=== PATIENT | female | born 1995 | race Caucasian/White ===

== ENCOUNTER → 2016-10-17 | Outpatient (CLI) | payer OTHER ==
--- NOTE | 2016-10-17 12:43 | CPEEG ---
[f rep st] ELECTROENCEPHALOGRAM DATE OF STUDY: 10/17/2016 DATE OF INTERPRETATION: 10/17/2016 INTERPRETATION: Normal EEG during wakefulness and sleep. There were no potentially epileptogenic abnormalities present during the recording. REPORT: This EEG contains 10 hertz alpha activity posterior head regions. There was no abnormal activation at rest, during photic stimulation or hyperventilation. The patient became drowsy and fell asleep during the study. There was no abnormal activation during drowsiness, sleep, or during times of arousal. /[id number]/MODL MTDD
== END ==
LOC: FCPNEURO 08:55
PROVIDERS: ATTEND Psychiatry & Neurology Neurology
DX: H53.123 Transient visual loss, bilateral (principal); R47.9 Unspecified speech disturbances; R51 Headache

== ENCOUNTER → 2016-10-24 | Outpatient (CLI) | payer OTHER ==
--- NOTE | 2016-10-24 17:00 | MR ---
MRI of the Brain (Without Contrast) at 1519 hours Clinical Indications: R 47.9, R 51, headaches Technique: T1-weighted images were acquired axially and sagittally from the foramen magnum to the ve rtex. Axial fast inversion recovery, fast T2-weighted, and diffusion-weighted axial images were obta ined without contrast. Findings: The ventricles, cisterns, and sulci are normal without atrophy, hydrocephalus, midline pelon ft, herniation, or epidural/subdural hematomas. No intracranial hemorrhage or masses. Diffusion-weigh alfredo sequence demonstrates no acute infarct. Cerebellar tonsils are in normal position. Pituitary glan d is normal in size. Normal signal flow-void in the superior sagittal sinus, basilar artery, and bila teral internal carotid arteries indicating patency. Paranasal sinuses and mastoid air cells are clear . Impression: Normal MRI of the brain without contrast.
== END ==
LOC: FIMAGING 14:54
PROVIDERS: ATTEND Psychiatry & Neurology Neurology
DX: H53.123 Transient visual loss, bilateral (principal); R47.9 Unspecified speech disturbances; R51 Headache